=== PATIENT | male | born 1995 | race Caucasian/White ===

== ENCOUNTER 2021-09-23 14:46 | Emergency (ER) | payer OTHER ==
[~2021-09-23] VITALS: Ht 177.8 cm; Wt 83.9 kg
--- NOTE | 2021-09-23 14:46 | NUR ---
PT AMBULATED TO [facility] ACCOMPANIED BY [facility].
[2021-09-23 14:48] VITALS: BP 143/80
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
--- NOTE | 2021-09-23 14:59 | NUR ---
[facility]ARTLEY EVALUATING PT
[2021-09-23] MEDS ORDERED: IBUPROFEN 600 MG TAB PO ONE (15:10)
--- NOTE | 2021-09-23 15:13 | NUR ---
PT TAKEN TO XRAY VIA W/C
--- NOTE | 2021-09-23 15:13 | NUR ---
pt being taken with pd to xray via wheelchair
[2021-09-23] MEDS ORDERED: IBUP-2213 PO (15:32)
[2021-09-23] MEDS ORDERED: BACI1PAC6 TP (15:32)
[2021-09-23 15:44] VITALS: BP 143/80
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
== END 2021-09-23 15:44 | disposition home or self-care (01) ==
LOC: MED 14:46
DX: S90.32XA Contusion of left foot, initial encounter (principal); S80.812A Abrasion, left lower leg, initial encounter; Z02.89 Encounter for other administrative examinations; V89.2XXA Person injured in unspecified motor-vehicle accident, traffic, initial encounter; Y93.89 Activity, other specified; Y92.89 Other specified places as the place of occurrence of the external cause; Y99.8 Other external cause status
CPT/HCPCS: 73630; 99283